=== PATIENT | female | born 1940 | race Caucasian/White ===

== ENCOUNTER 2018-01-21 08:59 | Outpatient (CLI) | payer OTHER ==
[~2018-01-21 08:59] MED LIST: CLONAZEPAM1 MG; COZAAR25 MG; PROTONIX20 MG; SYNTHROID125 MCG
== END 2018-01-21 13:58 | disposition home or self-care (01) ==
LOC: TOM 08:59
DX: I10 Essential (primary) hypertension (principal); R41.2 Retrograde amnesia; R55 Syncope and collapse

== ENCOUNTER 2018-01-24 06:29 | Outpatient (CLI) | payer OTHER | END 2018-01-24 06:34 | disposition home or self-care (01) | LOC: LAB 06:29 | DX: E11.9 Type 2 diabetes mellitus without complications (principal); R55 Syncope and collapse ==

== ENCOUNTER → 2018-04-20 08:26 | Outpatient (CLI) | payer OTHER | END | disposition home or self-care (01) | LOC: LAB 08:26 | DX: I10 Essential (primary) hypertension (principal); E11.9 Type 2 diabetes mellitus without complications; E03.8 Other specified hypothyroidism; E78.2 Mixed hyperlipidemia ==

== ENCOUNTER → 2018-05-12 | Emergency (ER) | payer OTHER ==
[~2018-05-12] VITALS: Ht 167.6 cm; Wt 86.2 kg
[~2018-05-12] MED LIST changes: +AMBIEN CR12.5 MG PO; +PRILOSEC OTC20 MG PO
== END | disposition home or self-care (01) ==
LOC: ER 10:06
DX: S00.03XA Contusion of scalp, initial encounter (principal); R55 Syncope and collapse; W18.09XA Striking against other object with subsequent fall, initial encounter; Y93.89 Activity, other specified; Y92.122 Bedroom in nursing home as the place of occurrence of the external cause; Y99.8 Other external cause status

== ENCOUNTER 2018-06-02 08:03 | Outpatient (CLI) | payer OTHER | END 2018-06-02 08:08 | disposition home or self-care (01) | LOC: LAB 08:03 | DX: I10 Essential (primary) hypertension (principal); E78.2 Mixed hyperlipidemia ==

== ENCOUNTER 2018-09-20 09:23 | Outpatient (CLI) | payer OTHER | END 2018-09-20 09:33 | disposition home or self-care (01) | LOC: LAB 09:23 | DX: I10 Essential (primary) hypertension (principal); E11.9 Type 2 diabetes mellitus without complications; E03.8 Other specified hypothyroidism; E78.2 Mixed hyperlipidemia; K92.1 Melena; D64.0 Hereditary sideroblastic anemia; M81.0 Age-related osteoporosis without current pathological fracture ==

== ENCOUNTER → 2019-02-17 08:59 | Outpatient (CLI) | payer OTHER | END | disposition home or self-care (01) | LOC: LAB 08:59 | DX: E11.9 Type 2 diabetes mellitus without complications (principal); I10 Essential (primary) hypertension; E03.8 Other specified hypothyroidism; E78.2 Mixed hyperlipidemia ==

== ENCOUNTER 2019-06-01 08:09 | Emergency (ER) | payer OTHER ==
[~2019-06-01] VITALS: Ht 167.6 cm; Wt 74.4 kg
== END 2019-06-01 16:12 | disposition home or self-care (01) ==
LOC: ER 08:09
DX: K52.89 Other specified noninfective gastroenteritis and colitis (principal)

== ENCOUNTER 2019-06-07 07:28 | Outpatient (CLI) | payer OTHER | END 2019-06-07 07:44 | disposition home or self-care (01) | LOC: LAB 07:28 | DX: E11.9 Type 2 diabetes mellitus without complications (principal); E03.8 Other specified hypothyroidism; I10 Essential (primary) hypertension; E78.2 Mixed hyperlipidemia; R10.84 Generalized abdominal pain; A05.8 Other specified bacterial foodborne intoxications ==

== ENCOUNTER 2020-04-02 04:52 | Day surgery (SDC) | payer OTHER ==
[~2020-04-02 04:52] MED LIST changes: +AMBIEN10 MG PO; +CLONAZEPAM2 MG PO; +LEVO-T50 MCG PO; +LOSARTAN POTASS25 MG PO; +PROTONIX40 M1 PO; +VITAMIN C WIT1000 MG PO; +VITAMIN D3 PO
== END 2020-04-02 12:40 | disposition home or self-care (01) ==
LOC: CIR.AMB 04:52
PROVIDERS: ATTEND Specialist
DX: K80.10 Calculus of gallbladder with chronic cholecystitis without obstruction (principal); Z20.828 Contact with and (suspected) exposure to other viral communicable diseases

== ENCOUNTER 2020-05-08 09:19 | Emergency (ER) | payer OTHER ==
[~2020-05-08] VITALS: Ht 167.6 cm; Wt 73.9 kg
== END 2020-05-08 12:23 | disposition home or self-care (01) ==
LOC: ER 09:19
DX: S00.83XA Contusion of other part of head, initial encounter (principal); R42 Dizziness and giddiness; W18.09XA Striking against other object with subsequent fall, initial encounter; Y93.89 Activity, other specified; Y92.89 Other specified places as the place of occurrence of the external cause; Y99.8 Other external cause status; Z20.828 Contact with and (suspected) exposure to other viral communicable diseases

== ENCOUNTER → 2020-07-13 07:54 | Outpatient (CLI) | payer OTHER | END | disposition home or self-care (01) | LOC: LAB 07:54 | PROVIDERS: ATTEND Internal Medicine Cardiovascular Disease | DX: I10 Essential (primary) hypertension (principal); E11.9 Type 2 diabetes mellitus without complications; E03.8 Other specified hypothyroidism; E78.2 Mixed hyperlipidemia ==

== ENCOUNTER 2020-11-09 07:48 | Outpatient (CLI) | payer OTHER | END 2020-11-09 07:51 | disposition home or self-care (01) | LOC: LAB 07:48 | PROVIDERS: ATTEND Internal Medicine Cardiovascular Disease | DX: E03.8 Other specified hypothyroidism (principal); I10 Essential (primary) hypertension; E11.9 Type 2 diabetes mellitus without complications ==

== ENCOUNTER 2021-03-29 07:41 | Outpatient (CLI) | payer OTHER | END 2021-03-29 07:44 | disposition home or self-care (01) | LOC: LAB 07:41 | PROVIDERS: ATTEND Internal Medicine Cardiovascular Disease | DX: I10 Essential (primary) hypertension (principal); E11.9 Type 2 diabetes mellitus without complications; E03.8 Other specified hypothyroidism; E78.2 Mixed hyperlipidemia ==

== ENCOUNTER 2021-09-20 09:05 | Outpatient (CLI) | payer OTHER | END 2021-09-20 09:08 | disposition home or self-care (01) | LOC: LAB 09:05 | PROVIDERS: ATTEND Internal Medicine Cardiovascular Disease | DX: I10 Essential (primary) hypertension (principal); E11.9 Type 2 diabetes mellitus without complications; E03.8 Other specified hypothyroidism; E78.2 Mixed hyperlipidemia; Z12.11 Encounter for screening for malignant neoplasm of colon; E55.9 Vitamin D deficiency, unspecified ==

== ENCOUNTER 2021-09-22 11:36 | Outpatient (CLI) | payer OTHER | END 2021-09-22 11:42 | disposition home or self-care (01) | LOC: LAB 11:36 | PROVIDERS: ATTEND Internal Medicine Cardiovascular Disease | DX: I10 Essential (primary) hypertension (principal); E11.9 Type 2 diabetes mellitus without complications; E03.9 Hypothyroidism, unspecified; E78.2 Mixed hyperlipidemia; Z12.11 Encounter for screening for malignant neoplasm of colon; E55.9 Vitamin D deficiency, unspecified ==

== ENCOUNTER → 2021-12-15 09:35 | Outpatient (CLI) | payer OTHER | END | disposition home or self-care (01) | LOC: LAB 09:35 | PROVIDERS: ATTEND Radiology Diagnostic Radiology | DX: K57.30 Diverticulosis of large intestine without perforation or abscess without bleeding (principal) ==